=== PATIENT | male | born 1945 | race Caucasian/White ===

== ENCOUNTER → 2016-09-08 | Outpatient (CLI) | payer MEDICARE | LOC: LAB.O 15:46 | PROVIDERS: ATTEND Surgery | DX: L76.82 Other postprocedural complications of skin and subcutaneous tissue (principal) ==

== ENCOUNTER → 2017-03-29 | Outpatient (CLI) | payer MEDICARE | END | disposition home or self-care (01) | LOC: GMAH 10:52 | PROVIDERS: ATTEND Family Medicine | DX: E78.2 Mixed hyperlipidemia (principal); Z12.5 Encounter for screening for malignant neoplasm of prostate | CPT/HCPCS: 84443; 84550; G0103 ==

== ENCOUNTER → 2017-10-11 | Outpatient (CLI) | payer MEDICARE | LOC: GMAH 11:09 | PROVIDERS: ATTEND Family Medicine | DX: N40.0 Benign prostatic hyperplasia without lower urinary tract symptoms (principal) ==

== ENCOUNTER → 2019-03-05 | Outpatient (CLI) | payer MEDICARE ==
--- NOTE | 2019-03-06 09:07 | CT ---
EXAM DESCRIPTION: Abdomen/Pelvis w/o Contrast: Computed Tomography. CLINICAL HISTORY: 73 years Male Right lower quadrant pain COMPARISON: None. TECHNIQUE: Spiral-axial scans 2.5 x 2.5 mm intervals through the abdomen and pelvis without oral or IV contrast. Coronal and sagittal 2.0 mm reconstructions. Total Exam DLP: 1373 mGy-cm. This exam was performed according to our departmental CT dose-optimization program which includes automated exposure control, adjustment of the mA and/or kV according to patient size and/or use of iterative reconstruction technique; to reduce radiation dose to as low as reasonably achievable (ALARA). FINDINGS: Lung bases and pleura: Negative. Liver, stomach, spleen, and adrenal glands: Multiple fluid density and fat density masses in the liver ranging up to 3 cm in diameter consistent with cysts. Liver slightly enlarged but otherwise normal echogenicity. Stomach minimally distended by fluid. Solid organs are negative. Pancreas, Gallbladder, and Ducts: Pancreas visualized. No ascites. Spleen and common duct unremarkable. Kidneys and Ureters: Minimal cortical thinning with no radiodense stones. No hydronephrosis. Pararenal stranding is symmetric and appears to be physiologic. Normal caliber of the bilateral ureters with no radiodense stones. Mesentery: No free fluid or free air. No peritoneal fatty stranding. No fascial thickening. Aorta: Normal outer caliber and minimal distal atherosclerotic calcification. Small Bowel: Negative. Terminal Ileum/Cecum: Normal caliber. Appendix normal caliber. Normal surrounding fatty density. Colon: Moderate amount of fecal matter in the proximal and mid colon. Multiple diverticula sigmoid colon with no distention or complications. Pelvic Organs: Minimal thickening of the urinary bladder wall with no radiodense stones. Marked enlargement of the prostate gland measuring 6.1 x 5.2 x 5.1 cm. Impressing on the bilateral rectus spleen and sidewall muscles as well as the base of the urinary bladder. Spine and Bony Pelvis: Subcortical cyst lateral subcapital left femoral neck may be due to femoral acetabular impingement. Spondylosis L5-S1 and L4-5. Minimal arthrosis superior lateral right acetabulum. Abdominal Wall/Back Soft Tissues: Minimal bilateral fatty inguinal hernias. Soft tissue density in the umbilical region. IMPRESSION: 1. Minimal renal cortical thinning. No radiodense stones in the kidneys or ureters, or urinary bladder. No hydronephrosis or hydroureter. Urinary bladder wall thickening. Marked enlargement of the prostate gland impressing on the base of the urinary bladder. Follow-up prostate evaluation recommended. 2. Diverticulosis sigmoid colon with no complications. Minimal constipation proximal colon. 3. Multiple hepatic cysts with no hepatic enlargement. 4. 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 Possible impingement syndrome left hip. Electronically signed by: Gucci Pruitt MD 03/06/2019 9:05 AM CDT
== END ==
LOC: CT 09:18
PROVIDERS: ATTEND Family Medicine
DX: K57.30 Diverticulosis of large intestine without perforation or abscess without bleeding (principal); K76.89 Other specified diseases of liver; M47.896 Other spondylosis, lumbar region; M16.11 Unilateral primary osteoarthritis, right hip; N40.0 Benign prostatic hyperplasia without lower urinary tract symptoms

== ENCOUNTER → 2019-03-12 | Outpatient (CLI) | payer MEDICARE ==
--- NOTE | 2019-03-13 15:08 | US ---
EXAM DESCRIPTION: Gall Bladder: ULTRASOUND. CLINICAL HISTORY: RUQ PAIN COMPARISON: CT scan of the abdomen 03/05/2019. TECHNIQUE: Transabdominal scanning: Vo-scale and Doppler modes. FINDINGS: Gallbladder: normal size, shape, echogenicity; no intraluminal stones or sludge. No fluid around the gallbladder. No wall thickening. 2.4 mm. Non-tender with transducer pressure. Common bile duct: caliber 5.7 mm within normal limits. Liver: Diffuse increased echogenicity; multiple anechoic objects in the liver with well-defined monsalve and posterior acoustic enhancement consistent with cysts. Left lobe cyst measuring 2.4 and 2.2 cm. Contour liver capsule smooth where seen. No fluid around the liver. Intrahepatic biliary ducts normal caliber. Doppler hepatopedal flow portal vein.. Long axis right lobe 17.2 cm. Pancreas: normal size and echogenicity. Duct not seen. Aorta: Proximal segment 2.4 cm Right kidney: 11.6 cm long axis with normal cortical thickness and echogenicity. No hydronephrosis, no echogenic stones, and no perirenal fluid.. IMPRESSION: 1. Minimal hepatomegaly with mild steatosis and multiple cysts. Normal vascular flow and normal caliber ducts. Smooth capsule with no ascites. 2. Pancreas and right kidney unremarkable. 3. Normal gallbladder and normal caliber of the common bile duct. If gallbladder dysfunction is suspected clinically, consider radionuclide hepatobiliary imaging. Electronically signed by: Gucci Pruitt MD 03/13/2019 3:06 PM CDT
== END ==
LOC: US 15:38
PROVIDERS: ATTEND Family Medicine
DX: K76.0 Fatty (change of) liver, not elsewhere classified (principal); K76.89 Other specified diseases of liver

== ENCOUNTER → 2019-05-21 | Outpatient (CLI) | payer MEDICARE | LOC: GMA MATASK 11:25 | PROVIDERS: ATTEND Family Medicine | DX: I10 Essential (primary) hypertension (principal); Z12.5 Encounter for screening for malignant neoplasm of prostate | CPT/HCPCS: 84443; 84550; G0103 ==